=== PATIENT | male | born 1985 | race Caucasian/White ===

== ENCOUNTER 2017-03-24 12:49 | Emergency (ER) | payer BC, MEDICAID ==
[2017-03-24 13:08] VITALS: RESP 16; O2SAT 96
[2017-03-24] MEDS ORDERED: TDAP ADULT 0.5 ML INJ (BOOSTRIX) IM ONE ×2 (14:26→15:00)
--- NOTE | 2017-03-24 14:59 | EDPHY ---
H & P Time Seen by Provider: 03/24/17 14:17 HPI/ROS: CHIEF COMPLAINT: Laceration left index finger HISTORY OF PRESENT ILLNESS: 32-year-old male presents to the emergency department with a laceration to the left index finger. The patient was at home and accidentally cut his left index finger with a knife. The incident happened just prior to arrival. He is right-hand dominant. He is unsure of his last tetanus shot. He denies any other trauma or injury. The incident happened just prior to arrival. ROS: Denies numbness or tingling in his fingers, retained foreign body. Past Medical/Surgical History: Negative Social History: Smoking Status: Never smoked Physical Exam: On examination the patient has a 2 cm laceration of the dorsal aspect of the left index finger overlying PIP joint. No active bleeding noted. No palpable bony tenderness. No evidence of retained foreign body. Full range of motion of his fingers. The other fingers do not appear injured. Constitutional: Initial Vital Signs Temperature (C) 36.6 C 03/24/17 13:06 Heart Rate 70 03/24/17 13:06 Respiratory Rate 16 03/24/17 13:06 Blood Pressure 113/68 03/24/17 13:06 O2 Sat (%) 96 03/24/17 13:06 O2 Delivery Mode Room Air Allergies/Adverse Reactions: No Known Allergies Allergy (Verified 03/24/17 13:05) Home Medications: Medication Instructions Recorded Ibuprofen 200 mg PO PRN 03/07/16 MDM/Departure - MDM Procedures: Laceration repair. Verbal consent was obtained from the patient. The 2 cm laceration on the left index finger was anesthetized using 1% lidocaine with epinephrine. The wound was irrigated with saline, draped and explored to its base with a gloved finger. There were no deep structures involved. No tendon injury was identified. The wound was repaired with 4 0 Prolene, 5 sutures. The wound repair was simple. The procedure was performed by myself. Medications Given: Discontinued Medications Diphtheria/Tetanus/Acell Pertussis (Boostrix) 0.5 ml IM .ONCE ONE Stop: 03/24/17 15:01 Last Admin: 03/24/17 14:45 Dose: 0.5 ml ED Course/Re-evaluation: 32-year-old male presents to the emergency department laceration left index finger. I do not think x-rays are indicated. His wound was repaired, see procedure note. Patient's tetanus shot was updated. - Depart Disposition: Home, Routine, Self-Care Clinical Impression: Laceration of left index finger Condition: Good Instructions: Care For Your Stitches (ED), Laceration (ED), Acute Wounds (ED) Additional Instructions: Wound Care Follow-Up: Removal of sutures in 10 days. Suture removal is complimentary in uncomplicated cases. Infection or abnormal findings would require reevaluation by the MD. In that case, you may be billed. Return if you notice any signs or symptoms of infection such as redness, swelling, increased pain, fever, purulent drainage. Keep wound dry, clean and protected. Ibuprofen 600 mg every 8 hours as needed for pain. Your given a tetanus shot today in the emergency department, please document this at home for your records. Referrals: Kelli Cornejo MD [[facility] Primary Care Provider] - 2-3 days, if not improved ( Primary care provider application development intern)
[2017-03-24 15:54] VITALS: BP 116/70; PULSE 72; TEMP 98.4
== END 2017-03-24 15:52 | disposition home or self-care (01) ==
PROC: 0HQGXZZ Repair Left Hand Skin, External Approach (ICD-10-PCS; principal; 2017-03-24)
DX: S61.211A Laceration without foreign body of left index finger without damage to nail, initial encounter (principal); Z23 Encounter for immunization; W26.0XXA Contact with knife, initial encounter; Y92.009 Unspecified place in unspecified non-institutional (private) residence as the place of occurrence of the external cause